=== PATIENT | female | born 1990 | race Caucasian/White ===

== ENCOUNTER 2017-09-25 19:48 | Emergency (ER) | payer OTHER, SELFPAY ==
[2017-09-25 20:22] VITALS: BP 112/73; PULSE 87; RESP 17; TEMP 36.8; O2SAT 100
--- NOTE | 2017-09-25 22:25 | ED_ITS ---
HPI - Headache General Chief Complaint: Headache Stated Complaint: NAUSEA AND VOMITING,THINKS SHE IS Time Seen by Provider: 09/25/17 22:25 Source: patient and family Mode of arrival: ambulatory Limitations: no limitations History of Present Illness HPI Narrative: 27-year-old female, , with 1st positive home test July 09, without having a period between her last baby, with a history of migraines presents with increasing frequency of migraine headaches and nausea, unable to hold anything down today. Her headache began this morning and was severe initially but has now decreased to approximately 7/10. She states that her headaches are similar in nature to previous. Denies any history of head trauma. No vision changes. Occasionally she has an aura but today she did not. MD Complaint: headache Onset (ago): day(s) (1) Onset description: gradual Severity: moderate Severity scale (1-10): 7 Quality: similar to previous headaches Relieving factors: dark room Exacerbating factors: light and noise Associated symptoms: nausea Related Data Home Medications Medication Instructions Recorded Confirmed No Known Home Medications 09/25/17 09/25/17 Allergies Allergy/AdvReac Type Severity Reaction Status Date / Time No Known Drug Allergies Allergy Verified 09/25/17 20:28 Review of Systems Review of Systems All systems reviewed & are unremarkable except as noted in HPI and below Constitutional Denies chills, Denies fever(s), Reports headache(s), Denies lethargy and Denies weakness Eyes Denies change in vision, Denies eye discharge, Denies irritation and Denies loss of vision ENT Ears, Nose, Mouth, and Throat: Denies change in voice, Reports headache(s), Denies neck pain and Denies sore throat Cardiovascular Denies chest pain, Denies irregular heart rhythm, Denies lightheadedness, Denies palpitations, Denies dyspnea, Denies dyspnea on exertion and Denies orthopnea Respiratory Denies cough, Denies dyspnea, Denies dyspnea on exertion and Denies wheezing Gastrointestinal Gastrointestinal: Denies abdominal pain, Denies change in bowel habits, Denies diarrhea, Reports nausea and Denies vomiting Genitourinary Denies hematuria, Denies flank pain, Denies urinary incontinence and Denies urinary urgency Musculoskeletal Denies neck pain Integumentary/Breasts Denies pruritus, Denies erythema, Denies rash and Denies wounds Neurologic Denies confusion, Reports headache(s), Denies loss of vision and Denies weakness Psychiatric Denies anxiety, Denies confusion, Denies depression, Denies homicidal ideation and Denies suicidal ideation Endocrine Denies palpitations Hematologic/Lymphatic Denies easy bruising Allergic/Immunologic Denies wheezing PFSH Social History Smoking Status: Never smoker Exam Const General: cooperative and well developed Nutritional Appearance: well nourished Orientation: alert, awake, oriented x3 and not confused [facility] Head: normocephalic and atraumatic Ears: external ears normal and TM's normal bilaterally Nose: external nose normal and No nasal discharge Face and sinus: sinuses nontender, face symmetric, no sinus tenderness and No dry mucous membranes Mouth: oral mucosae normal and moist mucous membranes Teeth and gingiva: dentition normal Throat: tonsils normal and uvula midline Eyes General: appearance normal, both eyes and all related structures Eyelids: eyelids normal Conjunctivae: conjunctivae normal Sclera: sclerae normal Pupils: PERRL EOM: EOM intact bilaterally Neck Neck: normal visual inspection, trachea midline, No lymphadenopathy, No midline deformity and No JVD Lymphatic: No lymphedema Chest Chest: normal inspection of the chest Resp Effort & Inspection: normal respiratory effort, able to speak in complete sentences, no respiratory distress and no use of accessory muscles Auscultation: clear to auscultation bilaterally, no rales, no rhonchi and no wheezes Cardio Rate: regular rate Rhythm: regular rhythm Heart Sounds: no click, no gallops, no murmurs and no rubs Pulses: normal peripheral pulses GI Inspection: non-distended Palpation: soft, no hepatosplenomegaly, No guarding, No pulsatile mass and No tender Auscultation: normal bowel sounds Back/Spine/Pelvis Back: No CVA tenderness Cervical Spine: cervical ROM normal and No pain with cervical ROM Thoracic/Lumbar Spine: thoracic and lumbar spine normal to inspection Skin General: no rashes or lesions noted, No jaundice and No petechiae Neuro General: alert, oriented x3, gait normal and no focal motor deficits Cranial Nerves: CN's II-XI intact bilaterally Speech: speech normal Motor: strength 5/5 throughout Sensory Exam: no sensory deficits noted Extrem General: full ROM, no clubbing, cyanosis or edema, no pedal edema and no calf tenderness Psych Appearance: well kempt Mental Status: mental status grossly normal Attitude: cooperative Thought Content: normal and suicidality Judgment: judgment good MDM - Headache MDM Narrative Medical decision making narrative: 27-year-old female with a history of migraines presenting with worsening migraines during . She found out she was approximately 2 and half months ago but has not seen a medical provider. She denies abdominal pain or discharge. Her headaches are similar to previous and I do not suspect any sinister cause for her headache. No history of trauma. Some nausea is associated with her headache. Headache improved with Tylenol and Zofran as well as IV fluids. Advised close follow-up with OB provider. I also recommend the riboflavin and magnesium to help with headaches in . Patient understands and agrees with plan. Lab Data Result diagrams: 09/25/17 22:53 09/25/17 22:53 Lab Results 09/25/17 09/25/17 Range/Units 22:53 22:53 WBC 10.3 (4.5-11.0) X10^3/uL RBC 3.84 L (4.0-5.2) X10^6/uL Hgb 11.9 L (12.0-16.0) g/dL Hct 34.3 L (36-46) % MCV 89.5 (80-100) fL MCH 31.1 (26-34) PG MCHC 34.7 (30-36) % RDW 12.9 (11.6-14.8) % Plt Count 227 (150-400) X10^3/uL Neut % (Auto) 77.8 H (50-75) % Lymph % (Auto) 16.9 L (25-40) % [place] % (Auto) 4.8 (3-14) % Eos % (Auto) 0.2 L (2-4) % Baso % (Auto) 0.3 (0-2) % Neut # (Auto) 8000 H (9344-0184) /uL Sodium 135 L (137-145) mmol/L Potassium 3.7 (3.4-5.1) mmol/L Chloride 102.0 (98-107) mmol/L Carbon Dioxide 23.0 (22-32) mmol/L BUN 8.0 (7-17) mg/dL Creatinine 0.50 L (0.52-1.04) mg/dL Estimated GFR > 60.0 (>60) mL/min BUN/Creatinine Ratio 16.0 (6-22) Glucose 84 (70-100) mg/dL Calcium 9.1 (8.4-10.2) mg/dL Magnesium 1.7 (1.6-2.3) mg/dL Total Bilirubin 0.4 (0.2-1.3) mg/dL AST 20 (14-36) IU/L ALT 20 (9-52) IU/L Alkaline Phosphatase 45 (38-126) U/L Total Protein 6.6 (6.3-8.2) g/dL Albumin 3.8 (3.5-5.0) g/dL Globulin 2.8 (1.7-4.1) g/dL Albumin/Globulin Ratio 1.4 (1.0-2.8)
[2017-09-25 22:27] VITALS: BP 112/71; PULSE 74; RESP 20; TEMP 37
[2017-09-25] MEDS: ACETAMINOPHEN 325 MG TABLET 975 MG PO (22:55)
[2017-09-25] MEDS: SODIUM CHLORIDE 0.9% 1,000 ML 1000 ML IV (22:55)
[2017-09-25] MEDS: ONDANSETRON 4 MG/2 ML INJ IV (22:56)
[2017-09-25 23:04] VITALS: BP 109/66; PULSE 82; RESP 16; O2SAT 100
[2017-09-25 23:12] LABS: Add Manual Diff / Slide Review NO; Basophils Percent Auto 0.3 % (0-2); Eosinophils Percent Auto 0.2 % (2-4); Hematocrit 34.3 % (36-46); Hemoglobin 11.9 g/dL (12.0-16.0); Lymphocytes Percent Auto 16.9 % (25-40); Mean Corpuscular HGB Conc 34.7 % (30-36); Mean Corpuscular Hemoglobin 31.1 PG (26-34); Mean Corpuscular Volume 89.5 fL (80-100); Monocytes Percent Auto 4.8 % (3-14); Neutrophils Absolute Auto 8000 /uL (3000-5900); Neutrophils Percent Auto 77.8 % (50-75); Platelet Count 227 X10^3/uL (150-400); Red Blood Cell Count 3.84 X10^6/uL (4.0-5.2); Red Cell Distribution Width 12.9 % (11.6-14.8); White Blood Cell Count 10.3 X10^3/uL (4.5-11.0)
[2017-09-25 23:17] LABS: Alanine Aminotransferase 20 IU/L (9-52); Albumin 3.8 g/dL (3.5-5.0); Albumin Globulin Ratio 1.4 (1.0-2.8); Alkaline Phosphatase 45 U/L (38-126); Aspartate Aminotransferase 20 IU/L (14-36); Bilirubin Total 0.4 mg/dL (0.2-1.3); Calcium 9.1 mg/dL (8.4-10.2); Estimated Glomerular Filt Rate > 60.0 mL/min (>60); Globulin 2.8 g/dL (1.7-4.1); Glucose 84 mg/dL (70-100); HEMOLYSIS < 15 (0-50); Magnesium 1.7 mg/dL (1.6-2.3); Potassium 3.7 mmol/L (3.4-5.1); Sodium 135 mmol/L (137-145); Total Protein 6.6 g/dL (6.3-8.2)
--- NOTE | 2017-09-26 00:10 | PC.NURSE ---
pt reports nausea and stanley improved. po challenge being done at this time.
[2017-09-26 00:11] VITALS: BP 103/72; PULSE 83; PULSE 84; RESP 12; RESP 16; O2SAT 100
[2017-09-26] MEDS: ONDANSETRON 4 MG ODT PREPACK 1 BOTTLE MISC (00:56)
[2017-09-26 01:05] VITALS: BP 107/74; PULSE 79; RESP 16; O2SAT 99
== END 2017-09-26 01:07 | disposition home or self-care (01) ==
PROVIDERS: Emergency Provider Emergency Medicine; PCP Specialist
DX: G43.909 Migraine, unspecified, not intractable, without status migrainosus (principal); R11.2 Nausea with vomiting, unspecified
CPT/HCPCS: 36591; 80053; 83735; 85025; 96361; 96374; 99283; 99284; J2405

== ENCOUNTER → 2017-11-27 08:16 | Outpatient (CLI) | payer OTHER, SELFPAY ==
--- NOTE | 2017-11-27 08:17 | DI.US.S_ITS ---
PROCEDURE: US OB >= 14 WEEKS FETUS INDICATIONS: 20 WEEK ANATOMIC SURVEY OUTSIDE/PRIOR DATING DATA: Last menstrual period (LMP): Unknown. LMP-based estimated date of delivery (NIC): Unknown. First dating scan (date and location): 10/13/17. Estimated date of delivery (NIC) from first dating scan: 02/26/18. TECHNIQUE: Real-time scanning was performed of the fetus, with image documentation and biometric measurements. COMPARISON: [facility], US, OB <= 14 WK FETUS ADD GEST, 10/13/2017, 16:12. FINDINGS: General: A single living intrauterine gestation is present. Presentation: Vertex. Placenta: Placental position is posterior, without previa. Lower placental edge 2 cm or less from internal cervical os qualifies as low lying placenta. Amniotic fluid index: 12.7 cm, normal range is 5-24 cm. heart rate: 136 beats per minute. Maternal cervical canal: 4.9 cm long. Normal lower limit is 2.5 cm. Report any funneling of internal cervical os: % of canal length, shape (U or V), width or any U-shaped funneling. biometrics: Biparietal diameter: 6.8 cm 27 weeks 4 days Head circumference: 24.5 cm 27 weeks zero days Abdominal circumference: 22.0 cm 26 weeks 3 days Femur length: 5.0 cm 27 weeks zero days Estimated gestational age from initial scan: not applicable. Composite gestational age from present scan: 27 weeks zero days Estimated weight and percentile: 979 g 29th percentile Measurement variability for biometric dating: +/- 7 days from 14 weeks to 15 weeks 6 days gestation, +/- 10 days from 16 weeks to 21 weeks 6 days gestation, +/- 2 weeks from 22 weeks to 27 weeks 6 days gestation, +/- 3 weeks for 28 weeks gestation or later. weight reference: 4500 g or EFW >90/95% is considered macrosomia or large for gestational age. EFW <10% is small for gestational age. EFW 5% or less is considered intra-uterine growth restriction. Anatomic survey: Neuro: Ventricles are non-dilated at less than 10 mm. Cisterna magna is normal at 3-11 mm. Cerebellum is normal in size and morphology. Nuchal skin fold: Normal at less than 6 mm between 14-21 weeks gestational age. Face: Nose and lips, facial profile are normal. Spine: No evidence for spina bifida. Heart: 4-chambered heart is present, with normal ventricular outflow tracts. Diaphragm: Diaphragm is intact. Stomach: Left-sided stomach is present. Kidneys: No hydronephrosis. Normal is less than 5 mm in 2nd trimester, less than 7 mm in 3rd trimester. Cord: 3-vessel cord has orthotopic insertion. Bladder: Normal in size. Extremities: All 4 extremities identified. IMPRESSION: 1. A single live intrauterine with ultrasound gestational age day 27 weeks zero days corresponding to ultrasound NIC of 02/26/18. 2. Anatomy is within normal limits. Dictated by: Aline Landin M.D. on 11/27/2017 at 11:02 Approved by: Aline Landin M.D. on 11/27/2017 at 11:05
== END ==
PROVIDERS: PCP Specialist; Visit Provider Specialist
DX: Z34.92 Encounter for supervision of normal pregnancy, unspecified, second trimester (principal); Z3A.27 27 weeks gestation of pregnancy
CPT/HCPCS: 36415; 76811; 82950; 85014; 85018; 86850

== ENCOUNTER → 2017-11-27 09:39 | Outpatient (CLI) | payer OTHER, SELFPAY ==
[2017-11-27 11:18] LABS: Hematocrit 33.1 % (36-46); Hemoglobin 11.1 g/dL (12.0-16.0)
[2017-11-27 12:22] LABS: GTT (PREG) 1 Hour PP 50gm Dose 118 mg/dL (76-139)
== END ==
PROVIDERS: PCP Specialist; Visit Provider Specialist
DX: Z3A.25 25 weeks gestation of pregnancy (principal)
CPT/HCPCS: 36415; 82950; 85014; 85018; 86850

== ENCOUNTER → 2018-01-29 09:52 | Outpatient (CLI) | payer OTHER, SELFPAY ==
[2018-01-30 17:04] LABS: Strep Grp B PCR NEG for Grp B Strep
== END ==
PROVIDERS: PCP Specialist; Visit Provider Specialist
DX: Z34.83 Encounter for supervision of other normal pregnancy, third trimester (principal)
CPT/HCPCS: 87653

== ENCOUNTER → 2018-02-26 16:58 | Outpatient (CLI) | payer OTHER, SELFPAY ==
--- NOTE | 2018-02-26 17:07 | PM.OBTRLD ---
Visit Information Visit Information Date of evaluation: 02/26/18 Reason for Evaluation: Yes non-stress test non-stress test reason: other (40 weeks) PFSH Social History Smoking Status: Never smoker Evaluation Evaluation Baseline heart rate: 140 Variability: Moderate (11-25) monitor accelerations: Present monitor decelerations: Absent Diagnosis, Plan/Disposition Final Diagnosis (1) Postmaturity , 40-42 weeks gestation: Current Visit: No Status: Acute Plan/Disposition Plan: Patient was discharged home to be followed up at routine OB appointment in 5 days
== END | disposition home or self-care (01) ==
PROVIDERS: PCP Specialist; Visit Provider Specialist
DX: Z3A.40 40 weeks gestation of pregnancy (principal); O48.0 Post-term pregnancy
CPT/HCPCS: 59025; G0378; G0379

== ENCOUNTER → 2018-03-02 12:23 | Outpatient (CLI) | payer OTHER, SELFPAY | END | disposition home or self-care (01) | LOC: LABOR 12:50 → OB 03-03 08:47 | PROVIDERS: PCP Specialist; Visit Provider Specialist | DX: Z03.71 Encounter for suspected problem with amniotic cavity and membrane ruled out (principal); Z3A.40 40 weeks gestation of pregnancy | CPT/HCPCS: 59025; 76815; 84112; G0378; G0379 ==

== ENCOUNTER 2018-03-03 21:54 | Inpatient (IN) | payer OTHER, SELFPAY ==
[2018-03-03 23:25] LABS: Add Manual Diff / Slide Review NO; Basophils Percent Auto 0.6 % (0-2); Eosinophils Percent Auto 0.6 % (2-4); Hematocrit 33.3 % (36-46); Hemoglobin 11.2 g/dL (12.0-16.0); Lymphocytes Percent Auto 19.5 % (25-40); Mean Corpuscular HGB Conc 33.7 % (30-36); Mean Corpuscular Hemoglobin 30.6 PG (26-34); Mean Corpuscular Volume 90.7 fL (80-100); Neutrophils Absolute Auto 6600 /uL (3000-5900); Neutrophils Percent Auto 70.3 % (50-75); Platelet Count 257 X10^3/uL (150-400); Red Blood Cell Count 3.67 X10^6/uL (4.0-5.2); Red Cell Distribution Width 13.6 % (11.6-14.8); White Blood Cell Count 9.3 X10^3/uL (4.5-11.0)
[2018-03-04 00:37] VITALS: BP 121/70
[2018-03-04] MEDS: LACTATED RINGERS 1,000 ML 100 ML IV ×2 (07:49→11:57)
[2018-03-04] MEDS: OXYTOCIN PREMIX 30 UNIT/500 ML PLAST..BAG IV (07:55)
--- NOTE | 2018-03-04 08:15 | PM.OBHP.1 ---
OB HPI Date/Time Date of admission: 03/03/18 Date Patient Seen: 03/04/18 Time Patient Seen: 08:00 History of Present Condition Chief complaint: OBSERVATION OF LABOR : 2 Para: 1 Estimated Date of Delivery: 02/26/18 Estimated Gestational Age (weeks): 40 Narrative: Maegan Henderson is a 27 year old female who had spontaneous rupture membranes at 6:30 p.m. on 03/03/2018. History of Present care: initiated at week # (20), number of visits (11) and pounds weight gain (38) Dating criteria: LMP confirmed by 2nd trimester US Ultrasounds: normal mid trimester US Obstetrical complications: none Medical complications: none Preadmission Labs Blood type: A (-) negative -: Antibody screen: negative, GBS status: negative, HBsAG: negative, HIV: negative, HSV 1: negative, HSV 2: negative and RPR/VDLR: negative -: Chlamydia screen: not detected and Gonorrhea screen: not detected -: Rubella: immune and Varicella: immune HCAB: negative 1 hr GTT: 118 Prior (ies) History: [id number] week gestation epidural catheter female infant 8 lb 3 oz vaginal delivery Evaluation Evaluation Baseline heart rate: 130 Variability: Moderate (11-25) monitor accelerations: Present monitor decelerations: Absent Contraction Frequency (minutes): 4 Uterine Contraction Intensity: Mild Category of Tracing: I Cervical dilation (cm): 4 Cervical effacement (%): 80 station: -1 Laboratory results: Laboratory Tests 03/03/18 03/03/18 23:10 23:10 WBC 9.3 RBC 3.67 L Hgb 11.2 L Hct 33.3 L MCV 90.7 MCH 30.6 MCHC 33.7 RDW 13.6 Plt Count 257 Neut % (Auto) 70.3 Lymph % (Auto) 19.5 L [place] % (Auto) 9.0 Eos % (Auto) 0.6 L Baso % (Auto) 0.6 Neut # (Auto) 6600 H Blood Type A Negative Antibody Screen Positive Antibody Identification Anti-D PFSH Social History Smoking Status: Never smoker Meds Allergies Allergy/AdvReac Type Severity Reaction Status Date / Time No Known Drug Allergies Allergy Verified 09/30/17 10:18 Review of Systems Review of Systems Patient denies headaches, scotomata, epigastric pain. She has had leakage of fluid but only mild contractions. Good movement. No fevers. Exam Vital Signs (past 8 hours): Blood pressure 121/70, temperature 97.9?, pulse of 100- 03/04/18 00:37 Blood Pressure 121/70 Narrative Exam Narrative: HEENT exam within normal limits. Lungs are clear to auscultation and percussion. Heart is regular rate and rhythm, no S3-S4 or murmurs. Abdomen is gravid and nontender. Extremities with trace edema and nontender. Normal DTRs. Objective Labs Result Diagrams: 03/03/18 23:10 Labs: Laboratory Results - last 24 hr 03/03/18 03/03/18 23:10 23:10 WBC 9.3 RBC 3.67 L Hgb 11.2 L Hct 33.3 L MCV 90.7 MCH 30.6 MCHC 33.7 RDW 13.6 Plt Count 257 Neut % (Auto) 70.3 Lymph % (Auto) 19.5 L [place] % (Auto) 9.0 Eos % (Auto) 0.6 L Baso % (Auto) 0.6 Neut # (Auto) 6600 H Blood Type A Negative Antibody Screen Positive Antibody Identification Anti-D Assessment and Plan (1) Postmaturity , 40-42 weeks gestation: Current visit: No Status: Acute (2) Premature rupture of membranes: Qualifiers: PROM onset of labor timing: unspecified duration between rupture of membranes and onset of labor PROM gestational age: full term Qualified Code(s): O42.92 - Full-term premature rupture of membranes, unspecified as to length of time between rupture and onset of labor Current visit: Yes Status: Acute 40 and 6/7 weeks by dates with spontaneous rupture membranes with no onset of labor. Will start Pitocin augmentation. Epidural catheter for pain control.
--- NOTE | 2018-03-04 13:55 | PM.OBPRVD ---
Events: Premature Rupture of Membrane Delivery date: 03/04/18 Intrapartal events: None Delivery augmentation: pitocin Delivery monitor: external FHT and external uterine Route of delivery: Laceration description: None Estimated blood loss (mL): 150 Anesthesia type: Epidural Narrative: Patient arrived on Labor and delivery with spontaneous rupture membranes. She did not go into active labor so was begun on Pitocin augmentation. She received an epidural catheter for pain control. She had category 1 to category 2 tracing throughout labor. She delivered spontaneously, over an intact perineum. The viable male was placed on maternal abdomen. After cord stopped pulsating the cord was clamped cut and cord bloods obtained. The placenta delivered spontaneously, intact, with 3 vessels. Patient had no cervical, vaginal, or perineal tears. Patient initially had minimal bleeding. She then began having increased bleeding that responded to IM Methergine and rectal Cytotec. Total estimated blood loss 350 cc. Male weight 8 lb 11.97 oz, 3968 g Baby 1: gender: Male Presentation: vertex position: Right Occiput Anterior Placenta delivery description: Spontaneous cord vessel description: 3 Vessels score (1 min): 9 score (5 min): 9 Plan for aftercare: Routine post vaginal delivery
--- NOTE | 2018-03-04 13:58 | P.PCNOB_ITS ---
Events: Premature Rupture of Membrane Delivery date: 03/04/18 Intrapartal events: None Delivery augmentation: pitocin Delivery monitor: external FHT and external uterine Route of delivery: Laceration description: None Estimated blood loss (mL): 150 Anesthesia type: Epidural Narrative: Patient arrived on Labor and delivery with spontaneous rupture membranes. She did not go into active labor so was begun on Pitocin augmentation. She received an epidural catheter for pain control. She had category 1 to category 2 tracing throughout labor. She delivered spontaneously , over an intact perineum. The viable male infant was placed on maternal abdomen. After cord stopped pulsating the cord was clamped cut and cord bloods obtained. The placenta delivered spontaneously, intact, with 3 vessels. Patient had no cervical, vaginal, or perineal tears. Patient initially had minimal bleeding. She then began having increased bleeding that responded to IM Methergine and rectal Cytotec. Total estimated blood loss 350 cc. Male weight 8 lb 11.97 oz, 3968 g [place] Baby 1: gender: Male Presentation: vertex position: Right Occiput Anterior Placenta delivery description: Spontaneous cord vessel description: 3 Vessels score (1 min): 9 score (5 min): 9 Plan for aftercare: Routine post vaginal delivery
[2018-03-04] MEDS: METHYLERGONOVINE 0.2 MG/ML VIAL IM (14:40)
[2018-03-04] MEDS: miSOPROStol 200 MCG TABLET 800 MCG PR (14:43)
[2018-03-04] MEDS: IBUPROFEN 600 MG TABLET PO (21:54)
[2018-03-05 07:19] LABS: Add Manual Diff / Slide Review NO; Basophils Percent Auto 0.3 % (0-2); Eosinophils Percent Auto 0.6 % (2-4); Hematocrit 32.1 % (36-46); Hemoglobin 10.8 g/dL (12.0-16.0); Lymphocytes Percent Auto 16.8 % (25-40); Mean Corpuscular HGB Conc 33.6 % (30-36); Mean Corpuscular Hemoglobin 30.5 PG (26-34); Mean Corpuscular Volume 90.7 fL (80-100); Monocytes Percent Auto 11.1 % (3-14); Neutrophils Absolute Auto 8700 /uL (3000-5900); Neutrophils Percent Auto 71.2 % (50-75); Platelet Count 214 X10^3/uL (150-400); Red Blood Cell Count 3.54 X10^6/uL (4.0-5.2); Red Cell Distribution Width 13.8 % (11.6-14.8); White Blood Cell Count 12.2 X10^3/uL (4.5-11.0)
--- NOTE | 2018-03-05 08:10 | P.PNOB_ITS ---
Subjective - OB Interval history: day 1 spontaneous vaginal delivery with no tears. Patient comments: pain well controlled baby status: doing well [place] feeding status: exclusively breast feeding Narrative: Patient denies headaches, scotomata, epigastric pain. She is doing extremely well. Date Patient Seen: 03/05/18 Time Patient Seen: 08:08 Exam Vital Signs (past 8 hours): Blood pressure 129/96 pulse 100, temperature 99? Narrative Exam Narrative: Abdomen was soft, nontender. Uterus is firm, at U, nontender. Mild lochia. Extremities without edema nontender. Objective Labs Result Diagrams: 03/05/18 06:40 Labs: Laboratory Results - last 24 hr 03/05/18 03/05/18 06:40 06:40 WBC 12.2 H RBC 3.54 L Hgb 10.8 L Hct 32.1 L MCV 90.7 MCH 30.5 MCHC 33.6 RDW 13.8 Plt Count 214 Neut % (Auto) 71.2 Lymph % (Auto) 16.8 L [place] % (Auto) 11.1 Eos % (Auto) 0.6 L Baso % (Auto) 0.3 Neut # (Auto) 8700 H Maternal Bleed Negative Assessment & Plan (1) Postmaturity , 40-42 weeks gestation: Status: Acute Current Visit: No (2) Premature rupture of membranes: Status: Acute Current Visit: Yes (3) Vaginal delivery: Status: Acute Assessment and plan: Normal 1st day exam Current Visit: Yes Plan day: 1 plan OB: routine care Time Spent With Patient Total time spent is greater than 50% in coordination of care (as documented) at patient's floor/unit and/or counseling patient: less than 15 minutes
[2018-03-05] MEDS: DOCUSATE 250 MG CAPSULE PO (08:34)
[2018-03-05] MEDS: IBUPROFEN 600 MG TABLET PO (11:21)
[2018-03-05 15:24] VITALS: BP 120/66; PULSE 82; RESP 16; TEMP 36.5
[2018-03-05 15:33] VITALS: BP 120/66; PULSE 82; RESP 16; TEMP 36.5
--- NOTE | 2018-03-05 15:39 | PM.OBDS.1 ---
Discharge Providers Date of admission: 03/03/18 21:54 Primary care physician: Janie Allen MD Consults: 03/03/18 22:31 Consult to Anesthesiology Urgent Comment: Consulting Provider: Anesthesiologist Reason for consultation: Epidural Has provider been notified: No 03/04/18 19:20 Consult to Environmental Services Manager Routine Comment: Discharge provider: Janie Allen MD Discharge Date: 03/05/18 Summary Date Patient Seen: 03/05/18 Time Patient Seen: 15:40 Hospital Course: Patient arrived on Labor and delivery with spontaneous rupture membranes. She required Pitocin augmentation of labor. She received an epidural catheter for pain control. She had a spontaneous vaginal delivery. Both she and the baby did well. She has no signs and symptoms of preeclampsia. Minimal bleeding. Ambulatory. Breast-feeding without difficulty. Peripartum Data Infant Delivery Method: Natural Vaginal Laceration description: None Procedures: Pitocin augmentation of labor, Epidural catheter and vaginal delivery complications: none Discharge Diagnosis (1) Postmaturity , 40-42 weeks gestation: Status: Acute (2) Premature rupture of membranes: Status: Acute (3) Vaginal delivery: Status: Acute Status at Discharge Functional status at discharge: independent ambulation Overall status at discharge: patient is progressing back to baseline Time Spent with Patient Total time spent providing and/or coordinating discharge services: Less than 30 minutes Objective Labs Result Diagrams: 03/05/18 06:40 Labs: Laboratory Results - last 24 hr 03/05/18 03/05/18 06:40 06:40 WBC 12.2 H RBC 3.54 L Hgb 10.8 L Hct 32.1 L MCV 90.7 MCH 30.5 MCHC 33.6 RDW 13.8 Plt Count 214 Neut % (Auto) 71.2 Lymph % (Auto) 16.8 L [place] % (Auto) 11.1 Eos % (Auto) 0.6 L Baso % (Auto) 0.3 Neut # (Auto) 8700 H Maternal Bleed Negative Discharge Plan Discharge Plan Patient Disposition: Home Discharge Med Rec/Prescriptions Follow up/Referrals: Janie Allen MD [Primary Care Provider] - 04/15/18 12:00 am (Friday,March at 11:00am) Provider Discharge Instructions Diet: Regular Skin/Wound/Dressing Care Report to your healthcare provider any signs of infection, such as:: chills, fever and increased pain Visit Report/Discharge Packet Instructions: DI for Labor and Delivery, Vaginal Visit Report Forms: Stroke Signs & Symptoms Discharge Data Primary Care Provider: Janie Allen Attending Provider: Janie Allen Admit Date/Time: 03/03/18 21:54 Discharges patient from system. Discharge Date/Time: 03/05/18 17:13
[2018-03-05] MEDS: RHO(D) IMMUNE GLOBULIN 1,500 UNIT SYRINGE 1500 UNIT IM (16:11)
== END 2018-03-05 17:13 | disposition home or self-care (01) | DRG 807 ==
PROVIDERS: Admitting Provider Family Medicine; PCP Specialist; Visit Provider Specialist
DX: O48.0 Post-term pregnancy (principal); Z37.0 Single live birth; Z3A.40 40 weeks gestation of pregnancy; O42.92 Full-term premature rupture of membranes, unspecified as to length of time between rupture and onset of labor
CPT/HCPCS: 01967; 36415; 59050; 59400; 84112; 85025; 85461; 86850; 86870; 86900; 86901; G0379; J2210; J2590; J2790; S0191

== ENCOUNTER 2018-11-23 16:59 | Emergency (ER) | payer SELFPAY ==
[2018-11-23 17:01] VITALS: BP 106/65; PULSE 79; RESP 14; TEMP 37.1; O2SAT 97
[2018-11-23 18:02] LABS: Bacteria Urine Moderate (10-30); Culture Indicated Urine Specimen Cultured; RBC Urine 10-30/HPF (0-5/HPF); Squamous Epithelial Cell Urine 1-5 /HPF (0-5/HPF); Transitional Epi Cells Urine 1-5/HPF (0-5/HPF); WBC Urine >100/HPF (0-5/HPF)
--- NOTE | 2018-11-23 18:49 | ED.FEMALEGU ---
HPI - Female Genitourinary <EMMA Syed - Last Filed: 11/23/18 18:58> General Chief complaint: Urogenital-Female Stated complaint: POSS UTI Time Seen by Provider: 11/23/18 18:37 Source: patient Mode of arrival: ambulatory Limitations: no limitations History of Present Illness HPI Narrative: The patient is a 28-year-old female who is 8 months presents with a chief complaint of ?I think I have a urinary tract infection? she complains of dysuria urgency frequency. She denies any flank pain fevers nausea vomiting or diarrhea. She has taken ibuprofen once for the pain. She states has been going on for 3 days. She denies any vaginal discharge. She denies any possibility of . She denies any sexually transmitted infection concerns. Related Data Previous Rx's Medication Instructions Recorded cephalexin 500 mg PO BID #14 cap 11/23/18 Allergies Allergy/AdvReac Type Severity Reaction Status Date / Time No Known Drug Allergies Allergy Verified 04/17/18 13:42 Review of Systems <EMMA Syed - Last Filed: 11/23/18 18:58> Review of Systems GENERAL: Denies chills, fatigue, malaise, fever, sweats. HEENT: Denies sinus pain, ear pain, sore throat, difficulty swallowing, dizziness. RESPIRATORY: Denies dyspnea, cough, wheezing, hemoptysis, sputum. CARDIOVASCULAR: Denies chest pain, palpitations, orthopnea, edema, GASTROINTESTINAL: Denies nausea, vomiting, abdominal pain, diarrhea, constipation, melena. : See HPI MUSCULOSKELETAL: denies weakness, joint pain, or bony pain SKIN: Denies rash, skin lesions, or other NEUROLOGIC: Denies weakness, headache, numbness, change in speech, confusion, seizures, incoordination. PSYCHIATRIC: No concerning psychosocial issues. 12 point review of systems is negative except for those stated above PFSH <EMMA Syed - Last Filed: 11/23/18 18:58> Medical History (Updated 11/23/18 @ 18:56 by EMMA Syed) Family history non-contributory (Acute) Medical history non-contributory (Acute) Social History Smoking Status: Never smoker Social History Smoking Status: Never smoker Exam <EMMA Syed - Last Filed: 11/23/18 18:58> Narrative Exam Narrative: GENERAL: This is a well-nourished, well-developed patient, no acute distress holding HEAD: Atraumatic. Normocephalic. No temporal or scalp tenderness. EYES: Pupils equal round and reactive. Extraocular motions intact. No scleral icterus. No injection or drainage. ENT: Nose without bleeding, purulent drainage or septal hematoma. Throat without erythema, tonsillar hypertrophy or exudate. Uvula midline. Airway patent. NECK: Trachea midline. No JVD or lymphadenopathy. Supple, nontender, no meningeal signs. CARDIOVASCULAR: Regular rate and rhythm without murmurs, gallops, or rubs. RESPIRATORY: Clear to auscultation. Breath sounds equal bilaterally. No wheezes, rales, or rhonchi. No cough. No increased respiratory effort. GASTROINTESTINAL: Abdomen soft, non-tender, nondistended. No hepato-splenomegaly, or palpable masses. No guarding. EXTREMITIES: No clubbing, cyanosis, or edema. No joint tenderness, effusion, or edema noted. BACK: Nontender without deformity or crepitance. No flank tenderness. No CVA tenderness bilaterally. NEURO: AOx3. SKIN: No rash or erythema. Initial Vital Signs Initial Vital Signs: Vital Signs Temperature 98.8 F 11/23/18 17:01 Pulse Rate 79 11/23/18 17:01 Respiratory Rate 14 11/23/18 17:01 Blood Pressure 106/65 11/23/18 17:01 Pulse Oximetry 97 11/23/18 17:01 <Jason Velasquez DO - Last Filed: 11/23/18 22:32> Initial Vital Signs Initial Vital Signs: Vital Signs Temperature 98.8 F 11/23/18 17:01 Pulse Rate 79 11/23/18 17:01 Respiratory Rate 14 11/23/18 17:01 Blood Pressure 106/65 11/23/18 17:01 Pulse Oximetry 97 11/23/18 17:01 Course <EMMA Syed - Last Filed: 11/23/18 18:58> Orders Ordered: ED Orders 11/23/18 17:26 Urine Culture Stat Urine Microscopic Stat Vital Signs - 8 hr 11/23/18 17:01 11/23/18 18:51 Temperature 98.8 F 98.9 F Pulse Rate 79 89 Respiratory Rate 14 16 Blood Pressure 106/65 Blood Pressure [Left Arm] 108/80 Pulse Oximetry 97 97 <Jason Velasquez DO - Last Filed: 11/23/18 22:32> Orders Ordered: ED Orders 11/23/18 17:26 Urine Culture Stat Urine Microscopic Stat Vital Signs - 8 hr 11/23/18 17:01 11/23/18 18:51 Temperature 98.8 F 98.9 F Pulse Rate 79 89 Respiratory Rate 14 16 Blood Pressure 106/65 Blood Pressure [Left Arm] 108/80 Pulse Oximetry 97 97 MDM - Female Genitourinary <NITHYA Syed-BC - Last Filed: 11/23/18 18:58> Lab Data Lab Results 11/23/18 Range/Units 17:26 Urine RBC 10-30/hpf H (0-5/HPF) Urine WBC >100/hpf H (0-5/HPF) Ur Squamous Epith Cells 1-5 /hpf (0-5/HPF) Ur Transition Epith Cell 1-5/hpf (0-5/HPF) Urine Bacteria Moderate (10-30) H (None) Ur Culture Indicated? Specimen cultured Point of Care Testing Test Results Negative Urine Dip Bedside Urine Glucose Negative Bedside Urine Bilirubin - Negative Bedside Urine Ketone - Negative Urine Specific [place] 1.020 Bedside Urine Occult Blood ++ Bedside Urine Protein + 30 Bedside Urine Urobilinogen - Negative Bedside Urine Nitrite - Negative MDM Narrative Medical decision making narrative: The patient is a 28-year-old female who presents with urinary symptoms. She is afebrile, hemodynamically stable. Her urine illustrate red blood cells, leukocyte esterase, white blood cells and moderate bacteria. The patient is at this point time, so I will use cephalexin. Her urine culture is pending at this time. Discussed at length monitoring for fever, vomiting or diarrhea and coming back to the ER for any acute concerns. Encourage PCP follow-up. Patient was given contact information for the hospital health human resource advisor to help arrange for a PCP. <Jason Velasquez DO - Last Filed: 11/23/18 22:32> Lab Data Lab Results 11/23/18 Range/Units 17:26 Urine RBC 10-30/hpf H (0-5/HPF) Urine WBC >100/hpf H (0-5/HPF) Ur Squamous Epith Cells 1-5 /hpf (0-5/HPF) Ur Transition Epith Cell 1-5/hpf (0-5/HPF) Urine Bacteria Moderate (10-30) H (None) Ur Culture Indicated? Specimen cultured Point of Care Testing Test Results Negative Urine Dip Bedside Urine Glucose Negative Bedside Urine Bilirubin - Negative Bedside Urine Ketone - Negative Urine Specific [place] 1.020 Bedside Urine Occult Blood ++ Bedside Urine Protein + 30 Bedside Urine Urobilinogen - Negative Bedside Urine Nitrite - Negative Discharge Plan Departure Patient Disposition: Home Clinical Impression: Urinary tract infection Qualifiers: Urinary tract infection type: site unspecified Hematuria presence: with hematuria Qualified Code(s): N39.0 - Urinary tract infection, site not specified Discharge Date/Time: 11/23/18 19:20 Interventions: ED Discharge Assessment Last Done: 11/23/18 19:19 Instructions: DI for Urinary Tract Infection (UTI) Activity Restrictions/Additional Instructions: Your urine shows signs of an infection. Thus I have started you on an antibiotic. This antibiotic is safe for breast-feeding. We are sending a urine culture, any might receive a phone call in 48-72 hours at this antibiotic does not work for your specific infection Please push fluids. Please monitor for fever, flank pain or signs of worsening. Please come back to emergency department for any acute concerns such as inability keep down fluids. I have given you contact information for the health human resource advisor, who can help you identify a new PCP Prescriptions: New cephalexin 500 mg capsule 500 mg PO BID Qty: 14 RF: 0 Referrals: [facility] [Outside] Janie Allen MD [Primary Care Provider] - <Jason Velasquez DO - Last Filed: 11/23/18 22:32> Cosign ED Attending Abiola Attestation: I was available for consultation during this patient's emergency department encounter
[2018-11-23 18:51] VITALS: BP 108/80; PULSE 89; RESP 16; TEMP 37.2; O2SAT 97
--- NOTE | 2018-11-23 18:56 | ED_ITS ---
HPI - Female Genitourinary <EMMA Syed - Last Filed: 11/23/18 18:58> General Chief complaint: Urogenital-Female Stated complaint: POSS UTI Time Seen by Provider: 11/23/18 18:37 Source: patient Mode of arrival: ambulatory Limitations: no limitations History of Present Illness HPI Narrative: The patient is a 28-year-old female who is 8 months presents with a chief complaint of ?I think I have a urinary tract infection? she complains of dysuria urgency frequency. She denies any flank pain fevers nausea vomiting or diarrhea. She has taken ibuprofen once for the pain. She states has been going on for 3 days. She denies any vaginal discharge. She denies any possibility of . She denies any sexually transmitted infection concerns. Related Data Previous Rx's Medication Instructions Recorded cephalexin 500 mg PO BID #14 cap 11/23/18 Allergies Allergy/AdvReac Type Severity Reaction Status Date / Time No Known Drug Allergies Allergy Verified 04/17/18 13:42 Review of Systems <EMMA Syed - Last Filed: 11/23/18 18:58> Review of Systems GENERAL: Denies chills, fatigue, malaise, fever, sweats. HEENT: Denies sinus pain, ear pain, sore throat, difficulty swallowing, dizziness. RESPIRATORY: Denies dyspnea, cough, wheezing, hemoptysis, sputum. CARDIOVASCULAR: Denies chest pain, palpitations, orthopnea, edema, GASTROINTESTINAL: Denies nausea, vomiting, abdominal pain, diarrhea, constipation, melena. : See HPI MUSCULOSKELETAL: denies weakness, joint pain, or bony pain SKIN: Denies rash, skin lesions, or other NEUROLOGIC: Denies weakness, headache, numbness, change in speech, confusion, seizures, incoordination. PSYCHIATRIC: No concerning psychosocial issues. 12 point review of systems is negative except for those stated above PFSH <EMMA Syed - Last Filed: 11/23/18 18:58> Medical History (Updated 11/23/18 @ 18:56 by EMMA Syed) Family history non-contributory (Acute) Medical history non-contributory (Acute) Social History Smoking Status: Never smoker Social History Smoking Status: Never smoker Exam <EMMA Syed - Last Filed: 11/23/18 18:58> Narrative Exam Narrative: GENERAL: This is a well-nourished, well-developed patient, no acute distress holding HEAD: Atraumatic. Normocephalic. No temporal or scalp tenderness. EYES: Pupils equal round and reactive. Extraocular motions intact. No scleral icterus. No injection or drainage. ENT: Nose without bleeding, purulent drainage or septal hematoma. Throat without erythema, tonsillar hypertrophy or exudate. Uvula midline. Airway patent. NECK: Trachea midline. No JVD or lymphadenopathy. Supple, nontender, no meningeal signs. CARDIOVASCULAR: Regular rate and rhythm without murmurs, gallops, or rubs. RESPIRATORY: Clear to auscultation. Breath sounds equal bilaterally. No wheezes, rales, or rhonchi. No cough. No increased respiratory effort. GASTROINTESTINAL: Abdomen soft, non-tender, nondistended. No hepato- splenomegaly, or palpable masses. No guarding. EXTREMITIES: No clubbing, cyanosis, or edema. No joint tenderness, effusion, or edema noted. BACK: Nontender without deformity or crepitance. No flank tenderness. No CVA tenderness bilaterally. NEURO: AOx3. SKIN: No rash or erythema. Initial Vital Signs Initial Vital Signs: Vital Signs Temperature 98.8 F 11/23/18 17:01 Pulse Rate 79 11/23/18 17:01 Respiratory Rate 14 11/23/18 17:01 Blood Pressure 106/65 11/23/18 17:01 Pulse Oximetry 97 11/23/18 17:01 <Jason Velasquez DO - Last Filed: 11/23/18 22:32> Initial Vital Signs Initial Vital Signs: Vital Signs Temperature 98.8 F 11/23/18 17:01 Pulse Rate 79 11/23/18 17:01 Respiratory Rate 14 11/23/18 17:01 Blood Pressure 106/65 11/23/18 17:01 Pulse Oximetry 97 11/23/18 17:01 Course <EMMA Syed - Last Filed: 11/23/18 18:58> Orders Ordered: ED Orders 11/23/18 17:26 Urine Culture Stat Urine Microscopic Stat Vital Signs - 8 hr 11/23/18 17:01 11/23/18 18:51 Temperature 98.8 F 98.9 F Pulse Rate 79 89 Respiratory Rate 14 16 Blood Pressure 106/65 Blood Pressure [Left Arm] 108/80 Pulse Oximetry 97 97 <Jason Velasquez DO - Last Filed: 11/23/18 22:32> Orders Ordered: ED Orders 11/23/18 17:26 Urine Culture Stat Urine Microscopic Stat Vital Signs - 8 hr 11/23/18 17:01 11/23/18 18:51 Temperature 98.8 F 98.9 F Pulse Rate 79 89 Respiratory Rate 14 16 Blood Pressure 106/65 Blood Pressure [Left Arm] 108/80 Pulse Oximetry 97 97 MDM - Female Genitourinary <NITHYA Syed-BC - Last Filed: 11/23/18 18:58> Lab Data Lab Results 11/23/18 Range/Units 17:26 Urine RBC 10-30/hpf H (0-5/HPF) Urine WBC >100/hpf H (0-5/HPF) Ur Squamous Epith Cells 1-5 /hpf (0-5/HPF) Ur Transition Epith Cell 1-5/hpf (0-5/HPF) Urine Bacteria Moderate (10-30) H (None) Ur Culture Indicated? Specimen cultured Point of Care Testing Test Results Negative Urine Dip Bedside Urine Glucose Negative Bedside Urine Bilirubin - Negative Bedside Urine Ketone - Negative Urine Specific [place] 1.020 Bedside Urine Occult Blood ++ Bedside Urine Protein + 30 Bedside Urine Urobilinogen - Negative Bedside Urine Nitrite - Negative MDM Narrative Medical decision making narrative: The patient is a 28-year-old female who presents with urinary symptoms. She is afebrile, hemodynamically stable. Her urine illustrate red blood cells, leukocyte esterase, white blood cells and moderate bacteria. The patient is at this point time, so I will use cephalexin. Her urine culture is pending at this time. Discussed at length monitoring for fever, vomiting or diarrhea and coming back to the ER for any acute concerns. Encourage PCP follow-up. Patient was given contact information for the hospital health marine habitat resource specialist to help arrange for a PCP. <Jason Velasquez DO - Last Filed: 11/23/18 22:32> Lab Data Lab Results 11/23/18 Range/Units 17:26 Urine RBC 10-30/hpf H (0-5/HPF) Urine WBC >100/hpf H (0-5/HPF) Ur Squamous Epith Cells 1-5 /hpf (0-5/HPF) Ur Transition Epith Cell 1-5/hpf (0-5/HPF) Urine Bacteria Moderate (10-30) H (None) Ur Culture Indicated? Specimen cultured Point of Care Testing Test Results Negative Urine Dip Bedside Urine Glucose Negative Bedside Urine Bilirubin - Negative Bedside Urine Ketone - Negative Urine Specific [place] 1.020 Bedside Urine Occult Blood ++ Bedside Urine Protein + 30 Bedside Urine Urobilinogen - Negative Bedside Urine Nitrite - Negative Discharge Plan Departure Patient Disposition: Home Clinical Impression: Urinary tract infection Qualifiers: Urinary tract infection type: site unspecified Hematuria presence: with hematuria Qualified Code(s): N39.0 - Urinary tract infection, site not specified Discharge Date/Time: 11/23/18 19:20 Interventions: ED Discharge Assessment Last Done: 11/23/18 19:19 Instructions: DI for Urinary Tract Infection (UTI) Activity Restrictions/Additional Instructions: Your urine shows signs of an infection. Thus I have started you on an antibiotic. This antibiotic is safe for breast- feeding. We are sending a urine culture, any might receive a phone call in 48-72 hours at this antibiotic does not work for your specific infection Please push fluids. Please monitor for fever, flank pain or signs of worsening. Please come back to emergency department for any acute concerns such as inability keep down fluids. I have given you contact information for the health marine habitat resource specialist, who can help you identify a new PCP Prescriptions: New cephalexin 500 mg capsule 500 mg PO BID Qty: 14 RF: 0 Referrals: [facility] [Outside] Janie Allen MD [Primary Care Provider] - <Jason Velasquez DO - Last Filed: 11/23/18 22:32> Cosign ED Attending [place] Attestation: I was available for consultation during this patient's emergency department encounter
== END 2018-11-23 19:20 | disposition home or self-care (01) ==
PROVIDERS: Emergency Medicine; Emergency Provider Nurse Practitioner Family; PCP Specialist
DX: N39.0 Urinary tract infection, site not specified (principal)
CPT/HCPCS: 81003; 81015; 81025; 87077; 87086; 87147; 99282; 99283

== ENCOUNTER → 2024-06-23 11:33 | Outpatient (CLI) | payer OTHER, SELFPAY ==
[2024-06-23 12:33] LABS: Add Manual Diff / Slide Review NO; Basophils Absolute Auto 0 /uL (0-100); Basophils Percent Auto 0.9 % (0-2); Eosinophils Absolute Auto 0 /uL (0-450); Eosinophils Percent Auto 0.8 % (2-4); Hematocrit 38.9 % (36-46); Hemoglobin 13.1 g/dL (12.0-16.0); Lymphocytes Absolute Auto 1900 /uL (1100-4500); Lymphocytes Percent Auto 39.5 % (25-40); Mean Corpuscular HGB Conc 33.6 % (30-36); Mean Corpuscular Hemoglobin 30.3 PG (26-34); Mean Corpuscular Volume 90.1 fL (80-100); Monocytes Absolute Auto 500 /uL (0-900); Monocytes Percent Auto 10.7 % (3-14); Neutrophils Absolute Auto 2300 /uL (1500-7000); Neutrophils Percent Auto 48.1 % (50-75); Platelet Count 256 X10^3/uL (150-400); Red Blood Cell Count 4.32 X10^6/uL (4.0-5.2); White Blood Cell Count 4.8 X10^3/uL (4.5-11.0)
[2024-06-23 12:54] LABS: HEMOLYSIS < 15 (0-50); Iron 70 ug/dL (37-170)
[2024-06-23 13:06] LABS: Percent Iron Saturation 23 % (15-50); Total Iron Binding Capacity 309 ug/dL (265-497); Transferrin 266 mg/dL (206-381)
[2024-06-23 13:24] LABS: Ferritin 20 ng/mL (6-137); TSH w/ Reflex to FT4 0.76 uIU/mL (0.47-4.68)
== END ==
PROVIDERS: PCP Nurse Practitioner Family; Referring Provider Nurse Practitioner Family; Visit Provider Nurse Practitioner Family
DX: N92.0 Excessive and frequent menstruation with regular cycle (principal)
CPT/HCPCS: 36415; 82728; 83540; 83550; 84443; 85025